=== PATIENT | female | born 1945 | race Caucasian/White ===

== ENCOUNTER 2022-10-16 08:20 | Outpatient (CLI) | payer MEDICARE, SELFPAY ==
--- NOTE | 2022-10-16 08:24 | ART_ITS ---
Reason For Study: PVD Procedure A bilateral lower extremity continuous wave Doppler with analog waveform analysis and ankle brachial indexes. Left Segmental Pressures Left brachial= 129mmHg. Left posterior tibial artery = 153mmHg. Left dorsalis pedis artery = 138mmHg. Left digit = 91 mmHg. The left dorsalis pedis waveforms are triphasic. The left posterior tibial artery waveforms are triphasic. Right Segmental Pressures Right brachial= 129mmHg. Right posterior tibial artery = 151mmHg. Right dorsalis pedis artery = 131mmHg. Right digit = 97 mmHg. The right dorsalis pedis waveforms are triphasic. The right posterior tibial artery waveforms are triphasic. Indices The right ankle brachial index by the dorsalis pedis is 1.02. The right ankle brachial index by the posterior tibial artery is 1.17. The right digital-brachial index is 0.75. The left ankle brachial index by the dorsalis pedis is 1.07. The left ankle brachial index by the posterior tibial artery is 1.19. The left digital-brachial index is 0.71. VL/Ankle Brachial Index Interpretation Summary Triphasic Doppler waveforms are noted at ankle level bilaterally. Pulse-volume recordings appear satisfactory at ankle and digital levels bilaterally. Resting ankle-brachial in dices are normal bilaterally. Digital-brachial indices are normal bilaterally. There is no evidence of significant arterial occlusive disease in the lower ext remities bilaterally. Ordering Physician: Caterina Nayak Referring Physician: CATERINA NAYAK MD Performed By: Estephanie Fajardo RVT
== END 2022-10-16 23:59 | disposition home or self-care (01) ==
LOC: CVS 08:22
PROVIDERS: PCP Family Medicine; Visit Provider Family Medicine
DX: I73.9 Peripheral vascular disease, unspecified (principal)
CPT/HCPCS: 93922

== ENCOUNTER → 2023-03-24 | Outpatient (CLI) | payer MEDICARE, SELFPAY ==
--- NOTE | 2023-03-24 12:15 | US_ITS ---
INDICATION: MULTINODULAR GOITER EXAMINATION: Ultrasound US Thyroid (eg thyroid, parathyroid, parotid) TECHNIQUE: Nunes scale and color doppler imaging was performed of the thyroid gland. COMPARISON: July 25, 2015 thyroid ultrasound. FINDINGS: RIGHT THYROID LOBE: 3.5 x 1.5 x 1.2 cm. Heterogeneous echotexture throughout. [ 6 x 4 x 3 mm anechoic cyst upper right thyroid lobe. 3 x 2 x 2 mm, solid, hyperechoic nodule, wider than tall with no echogenic foci and ill-defined margins; TI-RADS category 3, mildly suspicious nodule. 7 x 6 x 4 mm solid, hypoechoic nodule, wider than tall with smooth margins; TI-RADS Category 4, moderately suspicious nodule. Given size less than 1 cm, no follow-up recommended based on ACR guidelines. LEFT THYROID LOBE: 3.9 x 1.3 x 2.0 cm. Heterogeneous echotexture throughout. [ 1.5 x 1.0 x 0.9 cm solid, isoechoic nodule, wider than tall with smooth margins and no echogenic foci; TI-RADS Category 3, mildly suspicious nodule. Given size up to 1.5 cm, follow-up imaging at 1, 2, 3 and 5 years is recommended. 1.3 x 1.2 x 1.0 cm solid, heterogeneous hypoechoic echotexture, wider than tall ill-defined margins and punctate echogenic foci corresponds to a TI-RADS Category 5, highly suspicious nodule for which FNA is recommended. This nodule does not appear significantly changed in appearance compared to prior exam from 2015. Correlate with prior FNA if available. 7 x 5 x 4 mm solid, hypoechoic, wider than tall, ill-defined nodule with apparent peripheral macrocalcification corresponds to a BI-RADS Category 4 moderately suspicious nodule. Given size less than 1 cm, no follow-up is recommended. ISTHMUS: 3 mm. No thyroid nodules are present. US/Thyroid IMPRESSION: Normal size thyroid gland. Multiple nodules with management guidelines as above. Electronically Signed: Gabriel Graff DO at 21:50 EDT ,
== END | disposition home or self-care (01) ==
PROVIDERS: PCP Family Medicine; Referring Provider Family Medicine; Visit Provider Family Medicine
DX: E04.2 Nontoxic multinodular goiter (principal)
CPT/HCPCS: 76536

== ENCOUNTER → 2023-04-23 | Outpatient (CLI) | payer MEDICARE, SELFPAY ==
--- NOTE | 2023-04-23 | FLU_PTH ---
PATIENT: PHILIP FARR LOC: [facility] U#:[id number] AGE/SX: 77/F ROOM: RE04/23/[address]: Dr. Gabriel Koroma MD : 1945 BED: DIS: 04/23/2023 SPEC #: [id number] RECD: 04/23/23 12:10 STATUS: DARIEL EMRE #: [id number] SAYDA: 04/23/23 00:[address]: Gabriel Koroma DEPT: CYTOLOGY RECD BY: Francesco Brown ENTERED: 04/23/23 12:10 SP TYPE: Fluid OTHR DR: Dr. Karuna Ibarra MD Tissues: A - Thyroid gland, NOS B - Thyroid gland, NOS Procedures: Special Stain Group II Surgery Specimen Level IV Cytospin Fluid HEADER OPERATION: Fine needle aspiration left thyroid PRE-OP DIAGNOSIS: Thyroid nodules TISSUE SUBMITTED: A - Left mid pole thyroid nodule fluid, B - Left mid pole thyroid nodule x4 slides DIAGNOSIS CYTOLOGY A. Left mid pole thyroid nodule fluid, fine needle aspiration (cytospin and cell block): Consistent with benign follicular/colloid nodule ([place] Category II). Adequate for evaluation. See comment. B. Left mid pole thyroid nodule, fine needle aspiration (smears): Consistent with benign follicular/colloid nodule ([place] Category II). Adequate for evaluation. See comment. SJ:mikaela 04/24/2023 COMMENT Correlation with clinical, radiologic findings and appropriate follow up are necessary. The [place] System for thyroid diagnostic categorization was used in the evaluation of this case. CYTOLOGY STUDY Slides are reviewed. CYTOLOGY GROSS A - Received is 40 ml of red cloudy fluid labeled with the patient's name and and designated per the requisition as left mid pole thyroid. Submitted for cytology preparation including cell block. B - Received are four smears labeled with the patient's name and designated per the requisition as left mid pole thyroid nodule. Submitted for staining. / mikaela 04/23/2023 TC:5 CPT: 16644 x2, 82574
== END | disposition home or self-care (01) ==
LOC: LABSPEC 11:35
PROVIDERS: PCP Family Medicine; Referring Provider Surgery; Visit Provider Surgery
DX: E04.1 Nontoxic single thyroid nodule (principal)
CPT/HCPCS: 88108; 88305; 88313

== ENCOUNTER → 2024-03-30 | Outpatient (CLI) | payer MEDICARE, SELFPAY ==
--- NOTE | 2024-03-30 12:50 | BD_ITS ---
STUDY: DUAL ENERGY X-RAY ABSORPTIOMETRY / DXA REASON FOR EXAM: Female, 78 years old. Z780 TECHNIQUE: Bone Mineral Density (BMD) measurements of lumbar spine and bilateral hips were obtained. COMPARISON: None. FINDINGS: Lumbar Spine (L1-L4): g/cm2 (1.125) / T-score (0.7) / Z-score (3.4) Findings are suggestive of normal bone density with a low fracture risk. Left Femur Total: g/cm2 (0.900) / T-score (-0.3) / Z-score (1.7) Left Femoral Neck: g/cm2 (0.769) / T-score (-0.7) / Z-score (0.6) Right Femur Total: g/cm2 (0.785) / T-score (-1.3) / Z-score (0.8) Right Femoral Neck: g/cm2 (0.684) / T-score (-1.5) / Z-score (0.8) BD/Dexa Bone Density Study IMPRESSION: The patient is considered osteopenic as outlined below according to World Aj Organization (WHO) criteria with a low fracture risk. Reference Information: The T-score is the number of standard deviations above or below the standard which is normal for young adults at their peak bone mineral density. The World Health Organization (WHO) interprets the T-scores as follows: Above -1 Normal bone density Between -1 and -2.5 Osteopenia Equal to / or below -2.5 Osteoporosis As a practical clinical guideline, osteopenia may be graded as follows: Mild -1 through -1.5 Moderate -1.6 through -2.0 Severe -2.1 through -2.4 The Z-score is the number of standard deviations above or below age-matched controls. A Z-score of less than -1.5 would be considered abnormal. References: 1. NIH Osteoporosis and Related Bone Diseases www osteo.org 2. International Society for Clinical Densitometry www iscd.org 3. National Osteoporosis Foundation www nof.org Electronically Signed: Shemar Maradiaga MD at 15:44 EDT ,
== END | disposition home or self-care (01) ==
LOC: OPBD 12:34
PROVIDERS: PCP Family Medicine; Referring Provider Family Medicine; Visit Provider Family Medicine
DX: Z78.0 Asymptomatic menopausal state (principal)
CPT/HCPCS: 77080

== ENCOUNTER 2024-05-13 14:00 | Outpatient (RCR) | payer MEDICARE, SELFPAY ==
[2024-05-05 10:11] VITALS: BP 120/55; PULSE 85; RESP 20; TEMP 36.3; BMI 26.1
--- NOTE | 2024-05-05 11:03 | PCM.WC.HP ---
History of Present Illness Date of Service: 05/05/24 Chief Complaint: Follow-up bilateral lower leg edema and weeping legs History of Wound: 78-year-old white female with history of peripheral vascular disease she is also diabetic her A1c is run around 7.6 she is on Trulicity and glimepiride for her diabetes. She has issues with her lower legs weeping all the time and the edema. She has no history of A-fib or congestive heart failure. [facility] Medical History Diabetes Family history of multiple pregnancies Home Medications ?Medication ?Instructions ?Recorded ?Last Taken ?Type atorvastatin 20 mg tablet 20 mg PO QHS 08/08/14 Unknown History lactobacillus combination no.4 3 1 ea PO DAILY 08/08/14 Unknown History billion cell capsule (Probiotic) levothyroxine 75 mcg tablet 75 mcg PO DAILY 08/08/14 Unknown History lisinopril 20 mg tablet 20 mg PO DAILY 08/08/14 Unknown History multivitamin with folic acid 400 1 tab PO DAILY 08/08/14 Unknown History mcg tablet (Thera) FREESTYLE LITE TEST subcut 10/23/22 Unknown History bisoprolol 10 1 tab PO DAILY 10/23/22 Unknown History mg-hydrochlorothiazide 6.25 mg tablet blood-glucose meter (OneTouch #1 ea 10/23/22 Unknown Rx Ultra2 Meter) doxazosin 8 mg tablet (Cardura) 2 mg PO DAILY 10/23/22 Unknown History ergocalciferol (vitamin D2) 1,250 1,250 mcg PO .monthly 10/23/22 Unknown History mcg (50,000 unit) capsule aspirin 325 mg tablet 81 mg PO DAILY@0800 03/19/23 Unknown History vitamin A palmitate 4,500 mcg 4,500 mcg PO QWEEK 04/23/23 Unknown History (15,000 unit) tablet blood sugar diagnostic (OneTouch #100 ea 01/05/24 Unknown Rx Ultra Test strips) dulaglutide 3 mg/0.5 mL 3 mg (0.5 mL) subcut QWEEK #2 mL 01/05/24 Unknown Rx subcutaneous pen injector (Trulicity) glimepiride 4 mg tablet 2 mg (1/2 x 4 mg) PO DAILY #45 tabs 03/19/24 05/05/24 Rx metformin 1,000 mg tablet 1,000 mg PO BID #180 tabs 03/19/24 Unknown Rx metformin 500 mg/5 mL oral solution 500 mg PO DAILY 05/05/24 Unknown History Allergy/AdvReac Type Severity Reaction Status Date / Time No Known Allergies Allergy Verified 05/05/24 10:40 Family History Other Anxiety Depression Diabetes High cholesterol Hypertension Thyroid disorder Surgical History History of partial hysterectomy Social History Smoking Status: Former smoker alcohol intake: never substance use type: does not use what type of physical activity do you participate in: none ROS Constitutional Constitutional: Reports systems reviewed and no addt'l complaints, except as documented Eyes Eyes: Reports systems reviewed and no addt'l complaints, except as documented ENT HEENT: Reports systems reviewed and no addt'l complaints, except as documented Cardiovascular Cardiovascular: Reports systems reviewed and no addt'l complaints, except as documented Respiratory/Chest Respiratory/Chest: Reports systems reviewed and no addt'l complaints, except as documented Gastrointestinal Gastrointestinal: Reports systems reviewed and no addt'l complaints, except as documented Genitourinary Genitourinary: Reports systems reviewed and no addt'l complaints, except as documented Musculoskeletal Musculoskeletal: Reports systems reviewed and no addt'l complaints, except as documented Integumentary Integumentary: Reports wounds and other Details: Erythematous with weeping legs on lower extremities well-demarcated like a sock. This is on both legs circumferential Neurologic Neurologic: Reports systems reviewed and no addt'l complaints, except as documented Psychiatric Psychiatric: Reports systems reviewed and no addt'l complaints, except as documented Endocrine Endocrinology: Reports systems reviewed and no addt'l complaints, except as documented Hematologic/Lymphatic Hematologic/Lymphatic: Reports systems reviewed and no addt'l complaints, except as documented Allergic/Immunologic Allergic/Immunologic: Reports systems reviewed and no addt'l complaints, except as documented Vital Signs Vital Signs Vital Signs: 05/05/24 10:11 Temperature 97.3 F L Temperature Source Temporal Pulse Rate 85 Respiratory Rate 20 H Blood Pressure 120/55 L Blood Pressure Mean 76 Blood Pressure Source Monitor Weight Weight: 156 lb 14.738 oz Body Mass Index (BMI) 26.1 Physical Exam Const oriented x3 General Appearance: cooperative Exam Limitations: no limitations HEENT normocephalic Eyes PERRL Neck full ROM General: normal visual inspection Resp normal respiratory effort Effort and Inspection: able to speak in complete sentences Auscultation: clear to auscultation bilaterally Cardio regular rate and regular rhythm Palpation: normal PMI Rate: regular rate Rhythm: regular rhythm GI Palpation: soft and no hepatosplenomegaly Back/Spine Cervical Spine: cervical ROM normal Thoracic Spine / Upper Back: normal to inspection Lumbar Spine / Lower Back: normal to inspection Extremity General Extremity: normal exam except as noted, edema, pulses abnormal and other findings Other Details: Erythema at base with weeping legs Skin Rashes: rashes noted Wound Narrative: Bilateral lower legs well-demarcated like a sock with weeping yellow drainage and erythematous base Neuro oriented x3 Psych Appearance: grossly normal Speech: normal speech Thought Content: normal thought content Judgement: judgement good Debridement Note Debridement Note No debridement was completed: No debridement was completed today Post-Debridement Measurements and Additional Note: Post-Debridement Measurements/Treatment - Nurse 1 - General Ulcer Assessment Start: 05/05/24 10:11 Freq: Status: Active Protocol: ALICIA Activity Type Activity Date Activity User E-sign Co-sign Detail Recorded Client Recorded Date Recorded By Document 05/05/24 10:11 DL [email or web address] 05/05/24 10:36 DL 05/05/24 10:11 - Today's Visit Information Type of service Initial Visit Arrival Mode Ambulatory Transfer Assistance None Patient Identification Verified (Name & Yes ) Patient Requires Transmission-Based No Precautions Finger Stick Blood Sugar(mg/dl) (if not checked indicated): Height and Weight Height 5 ft 5 in Weight 156 lb 14.738 oz Weight in Pounds 156.9 lbs Weight Measurement Method Estimated by Patient Body Mass Index (BMI) 26.1 BMI Classification Overweight BSA - Scooter 1.78 Vital Signs Temperature (97.8 F-99.1 F) 97.3 F L Temperature Source Temporal Pulse Rate (60-100) 85 Pulse Location Monitor Respiratory Rate (12-18) 20 H Respiratory rate source Observation Blood Pressure (90/60-120/80) 120/55 L Blood Pressure Mean 76 Source Monitor History Since Last Visit- (Skip if this is Patient's initial visit) Left Footwear Regular Shoe Right Footwear Regular Shoe Pain Scale: 0-10 Numeric Is Patient Pain Free? Yes Lower Extremity Assessment/ Foot Assessment/ Toe Nail Assessment Left -Posterior Tibial Palpable No -Dorsalis Pedis Palpable Yes -Extremity Color Hyperpigmented, Hemosiderin -Hair Growth on Legs No -Hair Growth on Toes No -Temperature of Extremity Warm -Capillary Refill Less than 3 Seconds -Dependent Rubor Yes -Blanched when Elevated No -Lipodermatosclerosis No -Other Deformity No -Prior Foot Ulcer No -Charcot Joint No -Prior Amputation No -Thick Yes -Discolored Yes -Deformed No -Improper Length & Hygeine No Right -Posterior Tibial Palpable No -Dorsalis Pedis Palpable Yes -Extremity Color Hyperpigmented, Hemosiderin -Hair Growth on Legs No -Hair Growth on Toes No -Temperature of Extremity Warm -Capillary Refill Less than 3 Seconds -Dependent Rubor Yes -Blanched when Elevated No -Lipodermatosclerosis No -Other Deformity No -Prior Foot Ulcer No -Charcot Joint No -Prior Amputation No -Thick Yes -Discolored Yes -Deformed Yes -Improper Length & Hygeine No Neuropathy Assessment Feet - Top Side and Bottom <Entered> (a) Communication Assessment Preferred language Micronesian Able to Read Yes Able to Write No Communication Tools None Right Hearing Abillity Normal Left Hearing Abillity Normal Visual Assistive Devices Glasses Teaching Assessment Preferences Verbal,Written, Demonstration Barriers to Learning None Readiness To Learn Good Willingness to Engage in Self Management Med Activies Readiness to Engage in Self Management Med Activities Anxiety Level Calm Cooperation Cooperative Perception Coherent Interest in Health Problem Asks Questions Education Importance Acknowledges Need Does Patient Smoke tobacco or other No substances Smoking Status Former smoker Is Patient Diabetic Yes Functional Assessment Recent Decline in Ability to Perform Denies Any Declines Culture/Yazidism/Molding And Trim Installer Cultural/Yazidism Needs that may affect No Treatment Plan Would you allow our hospital hand spring repairer to No meet you for the purpose of spiritual/ emotional support? Molding And Trim Installer to contact place of yazidi No Teaching: Wound Center Dressing Your Wound -Person Taught Patient *Welcome to the Wound Center -Person Taught Patient (a) 1 - _ WC - Nurse 1 - General Ulcer Measurement Start: 05/05/24 10:11 Freq: Status: Active Protocol: Activity Type Activity Date Activity User E-sign Co-sign Detail Recorded Client Recorded Date Recorded By Document 05/05/24 10:11 DL [email or web address] 05/05/24 10:36 DL 05/05/24 10:11 Wound Center Nurse 1 #2 LLE Cluster -Current Size (cm) - Length 22 -Current Size (cm) - Width 26 -Current Size (cm) - Depth 0.1 -Total Square Cm 572 -Photo Taken Yes -Exudate Amt Large -Exudate Type Serosanguineous -Wound Margin Distinct, Outline Attached -Granulation Amt Medium (34-66%) -Granulation Quality Red -Necrosis Amt Medium (34-66%) -Necrotic Tissue Type Adherent Slough -Structure Exposed N/A -Texture (Mya-wound Skin Appearance) Excoriation, Scarring -Moisture (Mya-wound Skin Appearance) Weeping -Color (Mya-wound Skin Appearance) Erythema, Hemosiderin Staining -Temperature (Mya-wound Skin No Abnormality Appearance) (Pt Warm) -Ulcer Cleansing Soap and Water -Foul Odor after Cleansing No -Anesthetic Used 4% Lidocaine Solution #1 RLE Cluster -Current Size (cm) - Length 19 -Current Size (cm) - Width 27.5 -Current Size (cm) - Depth 0.1 -Total Square Cm 522.5 -Photo Taken Yes -Exudate Amt Large -Exudate Type Serosanguineous -Wound Margin Distinct, Outline Attached -Granulation Amt Medium (34-66%) -Granulation Quality Red -Necrosis Amt Medium (34-66%) -Necrotic Tissue Type Adherent Slough -Structure Exposed N/A -Texture (Mya-wound Skin Appearance) Excoriation, Scarring -Moisture (Mya-wound Skin Appearance) Weeping -Color (Mya-wound Skin Appearance) Erythema, Hemosiderin Staining -Temperature (Mya-wound Skin No Abnormality Appearance) (Pt Warm) -Tenderness on Palpation (Mya-wound No Skin Appearance) -Ulcer Cleansing Soap and Water -Foul Odor after Cleansing No -Anesthetic Used 4% Lidocaine Solution Right Calf (cm) 39.5 Right Ankle (cm) 23.7 Left Calf (cm) 42 Left Ankle (cm) 24.7 WC - Nurse 2 - General Ulcer CM Notes Start: 05/05/24 10:11 Freq: Status: Active Protocol: Activity Type Activity Date Activity User E-sign Co-sign Detail Recorded Client Recorded Date Recorded By Document 05/05/24 10:52 [facility] 1606-10-26 05/05/24 10:59 [facility] 05/05/24 10:52 Wound Center Nurse 2 #2 LLE Cluster -Post Debridement (cm) - Length 22 -Post Debridement (cm) - Width 26 -Post Debridement (cm) - Depth 0.1 -Total Square (Post) (cm) 572 -Area of Debridement (cm) - Length 22 -Area of Debridement (cm) - Width 26 -Total Square (Area) (cm) 572 -Tunneling No -Undermining/Tunneling No -Circular Undermining No -Wound/Ulcer Outcome Not Healed -Ulcer Cleansing Rinsed/ Irrigated with Saline -Foul Odor after Cleansing No Pain Scale: 0-10 Numeric Is Patient Pain Free? Yes Assessment/Plan Assessment/Plan (1) Peripheral vascular disease: CODE(S): I73.9 - Peripheral vascular disease, unspecified PLAN: Patient be scheduled for a Doppler study of arterial arteries and veins wound center protocol Wash legs with antibacterial soap like Dial. Pat dry apply Xeroform dressing to wound bases and cover with Zari and then double layer Tubigrip to bilateral lower legs daily dressings Follow-up in 1 week (2) Edema of both lower legs: CODE(S): R60.0 - Localized edema
--- NOTE | 2024-05-10 09:01 | WC ---
PHOTO 05/05/2024 LEFT LOWER EXT. CLUSTER
--- NOTE | 2024-05-10 09:03 | WC ---
PHOTO 05/05/2024 RIGHT LOWER EXT CLUSTER
[2024-05-12 10:15] VITALS: BP 130/68; PULSE 80; RESP 18; TEMP 36.6; BMI 26.1
--- NOTE | 2024-05-12 12:47 | PCM.WC.PN ---
History of Present Illness Date of Service: 05/12/24 Chief Complaint: Follow-up bilateral lower leg edema and weeping legs History of Wound: 78-year-old white female with history of peripheral vascular disease she is also diabetic her A1c is run around 7.6 she is on Trulicity and glimepiride for her diabetes. She has issues with her lower legs weeping all the time and the edema. She has no history of A-fib or congestive heart failure. Progress of Wound: Legs are already healed with the Xeroform from last week she has a couple of Rawl looking areas that we will continue using the Xeroform on but they are not open mostly for just protection. Patient is scheduled tomorrow for her Doppler flow studies. Subjective Subjective Patient is very happy with outcomes Objective Data Objective Data No sign of infection there is no seeping of any fluid on any of her legs healing nicely with the Xeroform dressing she has a couple of areas that appear to be a little bit raw we will continue with the Xeroform. Vital Signs: Vital Signs Temp Pulse Resp BP 98 F 80 18 130/68 H 05/12/24 10:15 05/12/24 10:15 05/12/24 10:15 05/12/24 10:15 Weight: 156 lb 14.738 oz Body Mass Index (BMI) 26.1 Lab / Micro Data Attestation: I reviewed the patient's lab results. Physical Exam Const oriented x3 General Appearance: cooperative Exam Limitations: no limitations HEENT normocephalic Eyes PERRL Neck full ROM General: normal visual inspection Resp normal respiratory effort Effort and Inspection: able to speak in complete sentences Auscultation: clear to auscultation bilaterally Cardio regular rate and regular rhythm Palpation: normal PMI Rate: regular rate Rhythm: regular rhythm GI Palpation: soft and no hepatosplenomegaly Back/Spine Cervical Spine: cervical ROM normal Thoracic Spine / Upper Back: normal to inspection Lumbar Spine / Lower Back: normal to inspection Extremity General Extremity: normal exam except as noted, edema, pulses abnormal and other findings Other Details: Erythema at base with weeping legs Skin Rashes: rashes noted Wound Narrative: Bilateral lower legs well-demarcated like a sock with weeping yellow drainage and erythematous base Neuro oriented x3 Psych Appearance: grossly normal Speech: normal speech Thought Content: normal thought content Judgement: judgement good Debridement Note Debridement Note No debridement was completed: No debridement was completed today Post-Debridement Measurements and Additional Note: Post-Debridement Measurements/Treatment WC - Nurse 1 - General Ulcer Assessment Start: 05/05/24 10:11 Freq: Status: Active Protocol: ALICIA Activity Type Activity Date Activity User E-sign Co-sign Detail Recorded Client Recorded Date Recorded By Document 05/05/24 10:11 DL [email or web address] 05/05/24 10:36 DL Document 05/12/24 10:15 RB wound 05/12/24 10:17 RB 05/05/24 05/12/24 10:11 10:15 - Today's Visit Information Type of service Initial Visit Follow-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 ) Arrival Mode Ambulatory Ambulatory Transfer Assistance None None Patient Identification Verified (Name & Yes Yes ) Patient Requires Transmission-Based No No Precautions Finger Stick Blood Sugar(mg/dl) (if not checked indicated): Height and Weight Height 5 ft 5 in Weight 156 lb 14.738 oz Weight in Pounds 156.9 lbs Weight Measurement Method Estimated by Patient Body Mass Index (BMI) 26.1 26.1 BMI Classification Overweight Overweight BSA - Scooter 1.78 Vital Signs Temperature (97.8 F-99.1 F) 97.3 F L 98 F Temperature Source Temporal Temporal Pulse Rate (60-100) 85 80 Pulse Location Monitor Monitor Respiratory Rate (12-18) 20 H 18 Respiratory rate source Observation Observation Blood Pressure (90/60-120/80) 120/55 L 130/68 H Blood Pressure Mean (mm Hg) 76 88 Source Monitor Monitor Position Semi-Fowlers Blood Pressure Location Left Arm History Since Last Visit- (Skip if this is Patient's initial visit) Have you changed medications since your No last visit? Any new allergies or adverse reactions No Had a fall/change in ADL's that may No increase risk of falls Signs or symptoms of abuse and/or No neglect since last visit Have you been in the hospital since your No last visit? Has dressing in place as prescribed Yes Has compression in place as prescribed Yes Has offloadiing in place as prescribed No Experienced any changes in pain level or No management Left Footwear Regular Shoe Right Footwear Regular Shoe Pain Scale: 0-10 Numeric Is Patient Pain Free? Yes Yes Lower Extremity Assessment/ Foot Assessment/ Toe Nail Assessment Left -Posterior Tibial Palpable No -Dorsalis Pedis Palpable Yes -Extremity Color Hyperpigmented, Hemosiderin -Hair Growth on Legs No -Hair Growth on Toes No -Temperature of Extremity Warm -Capillary Refill Less than 3 Seconds -Dependent Rubor Yes -Blanched when Elevated No -Lipodermatosclerosis No -Other Deformity No -Prior Foot Ulcer No -Charcot Joint No -Prior Amputation No -Thick Yes -Discolored Yes -Deformed No -Improper Length & Hygeine No Right -Posterior Tibial Palpable No -Dorsalis Pedis Palpable Yes -Extremity Color Hyperpigmented, Hemosiderin -Hair Growth on Legs No -Hair Growth on Toes No -Temperature of Extremity Warm -Capillary Refill Less than 3 Seconds -Dependent Rubor Yes -Blanched when Elevated No -Lipodermatosclerosis No -Other Deformity No -Prior Foot Ulcer No -Charcot Joint No -Prior Amputation No -Thick Yes -Discolored Yes -Deformed Yes -Improper Length & Hygeine No Neuropathy Assessment Feet - Top Side and Bottom <Entered> (a) Communication Assessment Preferred language German Able to Read Yes Able to Write No Communication Tools None Right Hearing Abillity Normal Left Hearing Abillity Normal Visual Assistive Devices Glasses Teaching Assessment Preferences Verbal,Written, Demonstration Barriers to Learning None Readiness To Learn Good Willingness to Engage in Self Management Med Activies Readiness to Engage in Self Management Med Activities Anxiety Level Calm Cooperation Cooperative Perception Coherent Interest in Health Problem Asks Questions Education Importance Acknowledges Need Does Patient Smoke tobacco or other No substances Smoking Status Former smoker Is Patient Diabetic Yes Functional Assessment Recent Decline in Ability to Perform Denies Any Declines 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 Resistance to contact place of catholic No Teaching: Wound Center Dressing Your Wound -Person Taught Patient *Welcome to the Wound Center -Person Taught Patient (a) 1 - _ ALEX - Nurse 1 - General Ulcer Measurement Start: 05/05/24 10:11 Freq: Status: Active Protocol: Activity Type Activity Date Activity User E-sign Co-sign Detail Recorded Client Recorded Date Recorded By Document 05/05/24 10:11 DL [email or web address] 05/05/24 10:36 DL Document 05/12/24 10:15 RB wound 05/12/24 10:17 RB 05/05/24 05/12/24 10:11 10:15 Wound Center Nurse 1 #2 LLE Cluster -Combined with other wound No -Current Size (cm) - Length 22 0.1 -Current Size (cm) - Width 26 0.1 -Current Size (cm) - Depth 0.1 0.1 -Total Square Cm 572 0.01 -Photo Taken Yes -Tunneling No -Undermining/Tunneling No -Circular Undermining No -Exudate Amt Large Medium -Exudate Type Serosanguineous Serosanguineous -Wound Margin Distinct, Distinct, Outline Outline Attached Attached -Granulation Amt Medium (34-66%) Medium (34-66%) -Granulation Quality [place] -Slough/Fibrin Yes -Necrosis Amt Medium (34-66%) Medium (34-66%) -Necrotic Tissue Type Adherent Slough Adherent Slough -Structure Exposed N/A N/A -Texture (Mya-wound Skin Appearance) Excoriation, Assessed, Scarring Excoriation -Moisture (Mya-wound Skin Appearance) Weeping Assessed -Color (Mya-wound Skin Appearance) Erythema, Assessed Hemosiderin Staining -Temperature (Mya-wound Skin No Abnormality No Abnormality Appearance) (Pt Warm) (Pt Warm) -Tenderness on Palpation (Mya-wound No Skin Appearance) -Ulcer Cleansing Soap and Water Wound Cleanser -Foul Odor after Cleansing No No -Anesthetic Used 4% Lidocaine 4% Lidocaine Solution Solution #1 RLE Cluster -Combined with other wound No -Current Size (cm) - Length 19 0.1 -Current Size (cm) - Width 27.5 0.1 -Current Size (cm) - Depth 0.1 0.1 -Total Square Cm 522.5 0.01 -Photo Taken Yes -Tunneling No -Undermining/Tunneling No -Circular Undermining No -Exudate Amt Large Medium -Exudate Type Serosanguineous Serosanguineous -Wound Margin Distinct, Distinct, Outline Outline Attached Attached -Granulation Amt Medium (34-66%) Medium (34-66%) -Granulation Quality [place] -Slough/Fibrin Yes -Necrosis Amt Medium (34-66%) Medium (34-66%) -Necrotic Tissue Type Adherent Slough Adherent Slough -Structure Exposed N/A N/A -Texture (Mya-wound Skin Appearance) Excoriation, Assessed, Scarring Excoriation -Moisture (Mya-wound Skin Appearance) Weeping Assessed -Color (Mya-wound Skin Appearance) Erythema, Assessed Hemosiderin Staining -Temperature (Mya-wound Skin No Abnormality No Abnormality Appearance) (Pt Warm) (Pt Warm) -Tenderness on Palpation (Mya-wound No No Skin Appearance) -Ulcer Cleansing Soap and Water Wound Cleanser -Foul Odor after Cleansing No No -Anesthetic Used 4% Lidocaine 4% Lidocaine Solution Solution Lower Limb Edema Present Yes Right Calf (cm) 39.5 36 Right Ankle (cm) 23.7 21.5 Left Calf (cm) 42 36.2 Left Ankle (cm) 24.7 21.5 WC - Nurse 2 - General Ulcer CM Notes Start: 05/05/24 10:11 Freq: Status: Active Protocol: Activity Type Activity Date Activity User E-sign Co-sign Detail Recorded Client Recorded Date Recorded By Document 05/05/24 10:52 [facility] [id number] 05/05/24 10:59 BMF Edit Result 05/05/24 10:52 BMF (1) [id number] 05/05/24 11:52 BMF Document 05/12/24 12:17 BMF [id number] 05/12/24 12:18 BMF (1) #2 LLE Cluster - Ulcer Cleansing Rinsed/Irrigated => with Saline => - Foul Odor after Cleansing No => - Bleeding Controlled with => NA #1 RLE Cluster - Post Debridement (cm) - Length => 19 - Post Debridement (cm) - Width => 27.5 - Post Debridement (cm) - Depth => 0.1 - Total Square (Post) (cm) => 522.5 - Area of Debridement (cm) - Length => 19 - Area of Debridement (cm) - Width => 27.5 - Total Square (Area) (cm) => 522.5 - Wound/Ulcer Outcome => Not Healed - Bleeding Controlled with => NA 05/05/24 05/12/24 10:52 12:17 Wound Center Nurse 2 #2 LLE Cluster -Post Debridement (cm) - Length 22 0.1 -Post Debridement (cm) - Width 26 0.1 -Post Debridement (cm) - Depth 0.1 0.1 -Total Square (Post) (cm) 572 0.01 -Area of Debridement (cm) - Length 22 0.1 -Area of Debridement (cm) - Width 26 0.1 -Total Square (Area) (cm) 572 0.01 -Tunneling No -Undermining/Tunneling No -Circular Undermining No -Wound/Ulcer Outcome Not Healed Not Healed -Bleeding Controlled with NA NA #1 RLE Cluster -Post Debridement (cm) - Length 19 0.1 -Post Debridement (cm) - Width 27.5 0.1 -Post Debridement (cm) - Depth 0.1 0.1 -Total Square (Post) (cm) 522.5 0.01 -Area of Debridement (cm) - Length 19 0.1 -Area of Debridement (cm) - Width 27.5 0.1 -Total Square (Area) (cm) 522.5 0.01 -Wound/Ulcer Outcome Not Healed Not Healed -Bleeding Controlled with NA NA Pain Scale: 0-10 Numeric Is Patient Pain Free? Yes Yes WC - Nurse 3 - General Ulcer D/C NN Start: 05/05/24 10:11 Freq: Status: Active Protocol: Activity Type Activity Date Activity User E-sign Co-sign Detail Recorded Client Recorded Date Recorded By Document 05/05/24 11:52 DL [id number] 05/05/24 11:55 DL Document 05/12/24 11:26 DL [email or web address] 05/12/24 11:28 DL 05/05/24 05/12/24 11:52 11:26 Wound Care Center Nurse 3 #2 LLE Cluster -Ulcer Cleansing Soap and Water Soap and Water -Foul Odor after Cleansing No No -Primary Dressing Applied NonAdherent Contact Layer -Other Dressing ABD xeroform -Primary Dressing Covered/Secured with Dry Gauze & Dry Gauze & Roll Gauze, Roll Gauze, Secured with Secured with Tape Tape -Other Covering tubigrip #1 RLE Cluster -Ulcer Cleansing Soap and Water Soap and Water -Foul Odor after Cleansing No No -Primary Dressing Applied NonAdherent Contact Layer -Other Dressing ABD xeroform -Primary Dressing Covered/Secured with Dry Gauze & Dry Gauze & Roll Gauze Roll Gauze, Secured with Tape -Other Covering tubigrip bryn -Tubular Bandage Double Layer -Size of Tubigrip Used Size E -Size E ($) 2 Treatment Response Procedure Procedure Tolerated Well Tolerated Well Pain Scale: 0-10 Numeric Is Patient Pain Free? Yes Yes WC - Visit Discharge Discharge Condition Stable Stable Ambulatory Status Ambulatory Ambulatory Transportation Private Auto Private Auto Assessment/Plan Assessment/Plan (1) Peripheral vascular disease: CODE(S): I73.9 - Peripheral vascular disease, unspecified PLAN: Keep scheduled appointment for a Doppler study of arterial arteries and veins wound center protocol Wash legs with antibacterial soap like Dial. Pat dry apply Xeroform dressing to wound bases and cover with Zari and then double layer Tubigrip to bilateral lower legs daily dressings Follow-up in 1 week (2) Edema of both lower legs: CODE(S): R60.0 - Localized edema
--- NOTE | 2024-05-13 13:48 | ART_ITS ---
Reason For Study: PVD Procedure A bilateral lower extremity continuous wave Doppler with analog waveform analysis,segmental pressures,and ankle brachial indexes without exercise. Left Segmental Pressures Left brachial= 124mmHg. Left posterior tibial artery = 143mmHg. Left dorsalis pedis artery = 135mmHg. Left digit = 127 mmHg. The left dorsalis pedis waveforms are triphasic. The left posterior tibial artery waveforms are triphasic. Right Segmental Pressures Right brachial= 117mmHg. Right posterior tibial artery = 157mmHg. Right dorsalis pedis artery = 149mmHg. Right digit = 114 mmHg. The right dorsalis pedis waveforms are triphasic. The right posterior tibial artery waveforms are triphasic. Indices The right ankle brachial index by the dorsalis pedis is 1.2. The right ankle brachial index by the posterior tibial artery is 1.27. The right digital-brachial index is .92. The left ankle brachial index by the posterior tibial artery is 1.15. The left ankle brachial index by the dorsalis pedis is 1.09. The left digital-brachial index is 1.02. VL/Lower Ext Art Exam w/o Exercis Interpretation Summary Triphasic Doppler waveforms are noted at ankle level bilaterally. Pulse-volume recordings appear satisfactory at all levels bilaterally. Resting ankle-brachial indices are norm al bilaterally. Digital-brachial indices are normal bilaterally. There is no evidence of significant arterial occlusive disease in the lower ext remities bilaterally. Ordering Physician: Ashley Abreu Referring Physician: ASHLEY ABREU INVENTORY CONTROL ASSISTANT-C Performed By: Chi Villalba RVT
--- NOTE | 2024-05-13 13:48 | VDLE_ITS ---
Reason For Study: edema RIGHT LEFT CFV is compressible, spontaneous, phasic, CFV is compressible, spontaneous, phasic, competent and demonstrates normal competent, and demonstrates normal augmentation. augmentation. FV is compressible, spontaneous, phasic, FV is compressible, spontaneous, phasic, competent and demonstrates normal competent and demonstrates normal augmentation. augmentation. POP V is compressible, spontaneous, phasic, POP V is compressible, spontaneous, phasic, competent and demonstrates normal competent and demonstrates normal augmentation. augmentation. T/P Trunk is compressible. T/P Trunk is compressible. PTV is compressible. PTV is compressible. RT PerV is compressible. LT PerV is compressible. SFJ is competent and measures .81 cm. SFJ is competent and measures .83 cm. GSV proximal thigh measures .62 x .62 cm. GSV proximal thigh measures .65 x .62 cm. GSV at knee measures .5 x .51 cm. GSV at knee measures .39 x .39 cm. GSV INCOMPETENT throughout for greater than GSV INCOMPETENT throughout for greater than 0.5 seconds. 0.5 seconds. SSV proximal calf is INCOMPETENT for greater SSV proximal calf is INCOMPETENT for greater than 0.5 seconds and measures .4 x .45 cm. than 0.5 seconds and measures .22 x .26 cm. Procedure ASV distal thigh is INCOMPETENT for greater This is a venous duplex using B-mode, color than 0.5 seconds and measures .47 x .46 cm. flow and spectral Doppler. Exam performed in department. The exam was diagnostic. VL/Venous Duplex US - Anthony Extrem Interpretation Summary Deep veins of the lower extremities are bilaterally patent and compressible seg mentally. There is no evidence of deep vein thrombosis on either side. Valvular competence appears in tact within the proximal deep venous systems bilaterally. The great saphenous veins appear bila terally patent and compressible segmentally. Sapheno-femoral junctions are bilaterally competent . Segmental valvular incompetence is noted within the great saphenous veins bilaterally. Small saphe nous veins are patent and incompetent bilaterally. The accessory saphenous vein in the left distal th igh is incompetent. Ordering Physician: Marcella Gil Referring Physician: Karuna Ibarra Performed By: Chi Villalba RVT
== END 2024-05-16 23:59 | disposition home or self-care (01) ==
LOC: WC 14:00
PROVIDERS: PCP Family Medicine; Referring Provider Family Medicine; Visit Provider Nurse Practitioner
DX: E11.51 Type 2 diabetes mellitus with diabetic peripheral angiopathy without gangrene (principal); R60.0 Localized edema; Z79.82 Long term (current) use of aspirin; Z79.84 Long term (current) use of oral hypoglycemic drugs; Z79.85 Long-term (current) use of injectable non-insulin antidiabetic drugs; Z79.890 Hormone replacement therapy; Z79.899 Other long term (current) drug therapy; Z87.891 Personal history of nicotine dependence
CPT/HCPCS: 93923; 93970; 99213; 99214; G0463

== ENCOUNTER 2024-05-19 10:01 | Outpatient (RCR) | payer MEDICARE, SELFPAY ==
[2024-05-19 00:04] VITALS: BP 130/68; PULSE 80; RESP 18; TEMP 36.6; BMI 26.1
[2024-05-19 10:19] VITALS: BP 126/66; PULSE 75; RESP 18; TEMP 36.1; BMI 26.1
--- NOTE | 2024-05-19 10:43 | PCM.WC.PN ---
History of Present Illness Date of Service: 05/19/24 Chief Complaint: Follow-up bilateral lower leg edema and weeping legs History of Wound: 78-year-old white female with history of peripheral vascular disease she is also diabetic her A1c is run around 7.6 she is on Trulicity and glimepiride for her diabetes. She has issues with her lower legs weeping all the time and the edema. She has no history of A-fib or congestive heart failure. Progress of Wound: Venous leg studies came back positive for GSF blockages in her connectors. Patient is going to be referred to Dr. Becker her wounds on her legs are completely healed. Patient will be discharged from the wound center Subjective Subjective Patient very pleased with outcomes and will follow-up with Dr. Becker after we get the referral and Objective Data Objective Data Wounds healed on legs patient be discharged from the wound center a referral was sent to Dr. Becker for her venous problems She can follow-up as needed Vital Signs: Vital Signs Temp Pulse Resp BP 97 F L 75 18 126/66 H 05/19/24 10:19 05/19/24 10:19 05/19/24 10:19 05/19/24 10:19 Weight: 156 lb 14.738 oz Body Mass Index (BMI) 26.1 Lab / Micro Data Attestation: I reviewed the patient's lab results. Physical Exam Const oriented x3 General Appearance: cooperative Exam Limitations: no limitations HEENT normocephalic Eyes PERRL Neck full ROM General: normal visual inspection Resp normal respiratory effort Effort and Inspection: able to speak in complete sentences Auscultation: clear to auscultation bilaterally Cardio regular rate and regular rhythm Palpation: normal PMI Rate: regular rate Rhythm: regular rhythm GI Palpation: soft and no hepatosplenomegaly Back/Spine Cervical Spine: cervical ROM normal Thoracic Spine / Upper Back: normal to inspection Lumbar Spine / Lower Back: normal to inspection Extremity General Extremity: normal exam except as noted, edema, pulses abnormal and other findings Other Details: Erythema at base with weeping legs Skin Rashes: rashes noted Wound Narrative: Bilateral lower legs well-demarcated like a sock with weeping yellow drainage and erythematous base Neuro oriented x3 Psych Appearance: grossly normal Speech: normal speech Thought Content: normal thought content Judgement: judgement good Debridement Note Debridement Note No debridement was completed: No debridement was completed today Post-Debridement Measurements and Additional Note: Post-Debridement Measurements/Treatment ALEX - Nurse 1 - General Ulcer Assessment Start: 05/19/24 10:19 Freq: Status: Active Protocol: ALICIA Activity Type Activity Date Activity User E-sign Co-sign Detail Recorded Client Recorded Date Recorded By Document 05/19/24 10:19 RB wound 05/19/24 10:24 RB 05/19/24 10:19 WC - Today's Visit Information Type of service Follow-up Visit (Physician/COMPUTATIONAL SCIENTIST ) Arrival Mode Ambulatory Transfer Assistance None Patient Identification Verified (Name & Yes ) Patient Requires Transmission-Based No Precautions Height and Weight Body Mass Index (BMI) 26.1 BMI Classification Overweight Vital Signs Temperature (97.8 F-99.1 F) 97 F L Temperature Source Temporal Pulse Rate (60-100) 75 Pulse Location Monitor Respiratory Rate (12-18) 18 Respiratory rate source Observation Blood Pressure (90/60-120/80) 126/66 H Blood Pressure Mean (mm Hg) 86 Source Monitor Position Semi-Fowlers Blood Pressure Location Left Arm History Since Last Visit- (Skip if this is Patient's initial visit) Have you changed medications since your No last visit? Any new allergies or adverse reactions No Had a fall/change in ADL's that may No increase risk of falls Signs or symptoms of abuse and/or No neglect since last visit Have you been in the hospital since your No last visit? Has dressing in place as prescribed Yes Has compression in place as prescribed Yes Has offloadiing in place as prescribed No Experienced any changes in pain level or No management Pain Scale: 0-10 Numeric Is Patient Pain Free? Yes - Nurse 1 - General Ulcer Measurement Start: 05/19/24 10:19 Freq: Status: Active Protocol: Activity Type Activity Date Activity User E-sign Co-sign Detail Recorded Client Recorded Date Recorded By Document 05/19/24 10:19 RB wound 05/19/24 10:24 RB 05/19/24 10:19 Wound Center Nurse 1 #2 LLE Cluster -Combined with other wound No -Current Size (cm) - Length 0.1 -Current Size (cm) - Width 0.1 -Current Size (cm) - Depth 0.1 -Total Square Cm 0.01 #1 RLE Cluster -Combined with other wound No -Current Size (cm) - Length 0.1 -Current Size (cm) - Width 0.1 -Current Size (cm) - Depth 0.1 -Total Square Cm 0.01 -Tunneling No -Undermining/Tunneling No -Circular Undermining No -Exudate Amt None Present -Wound Margin Distinct, Outline Attached -Granulation Amt Large (67-100%) -Granulation Quality Anderson -Necrosis Amt Small (1-33%) -Necrotic Tissue Type Adherent Slough -Structure Exposed N/A -Texture (Mya-wound Skin Appearance) Assessed, Excoriation -Moisture (Mya-wound Skin Appearance) Assessed -Color (Mya-wound Skin Appearance) Assessed -Temperature (Mya-wound Skin No Abnormality Appearance) (Pt Warm) -Tenderness on Palpation (Mya-wound No Skin Appearance) -Ulcer Cleansing Wound Cleanser -Foul Odor after Cleansing No Lower Limb Edema Present Yes Right Calf (cm) 36.2 Right Ankle (cm) 21.5 Left Calf (cm) 36 Left Ankle (cm) 21.5 WC - Nurse 2 - General Ulcer CM Notes Start: 05/19/24 10:19 Freq: Status: Active Protocol: Activity Type Activity Date Activity User E-sign Co-sign Detail Recorded Client Recorded Date Recorded By Document 05/19/24 10:30 [facility] [email or web address] 05/19/24 10:33 [facility] 05/19/24 10:30 Wound Center Nurse 2 #2 LLE Cluster -Post Debridement (cm) - Length 0 -Post Debridement (cm) - Width 0 -Post Debridement (cm) - Depth 0 -Total Square (Post) (cm) 0 -Area of Debridement (cm) - Length 0 -Area of Debridement (cm) - Width 0 -Total Square (Area) (cm) 0 -Wound/Ulcer Outcome Healed- Epithelialized #1 RLE Cluster -Post Debridement (cm) - Length 0 -Post Debridement (cm) - Width 0 -Post Debridement (cm) - Depth 0 -Total Square (Post) (cm) 0 -Area of Debridement (cm) - Length 0 -Area of Debridement (cm) - Width 0 -Total Square (Area) (cm) 0 -Wound/Ulcer Outcome Healed- Epithelialized Pain Scale: 0-10 Numeric Is Patient Pain Free? Yes WC - Nurse 3 - General Ulcer D/C NN Start: 05/19/24 10:19 Freq: Status: Active Protocol: Activity Type Activity Date Activity User E-sign Co-sign Detail Recorded Client Recorded Date Recorded By Document 05/19/24 10:37 [facility] [email or web address] 05/19/24 10:37 [facility] 05/19/24 10:37 Wound Care Center Nurse 3 bryn -Tubular Bandage Double Layer -Size of Tubigrip Used Size E -Size E ($) 2 Treatment Response Procedure Tolerated Well Pain Scale: 0-10 Numeric Is Patient Pain Free? Yes WC - Visit Discharge Discharge Condition Stable Ambulatory Status Ambulatory Transportation Private Auto Notes: will refer to vascular- dr becker Assessment/Plan Assessment/Plan (1) Peripheral vascular disease: CODE(S): I73.9 - Peripheral vascular disease, unspecified PLAN: Follow-up with Dr. Becker referral was sent over Tubigrip to bilateral lower legs till seen by Dr. Becker Discharge from the wound center and follow-up as needed (2) Edema of both lower legs: CODE(S): R60.0 - Localized edema
== END 2024-05-21 08:57 | disposition home or self-care (01) ==
LOC: WC 10:01
PROVIDERS: PCP Family Medicine; Referring Provider Family Medicine; Visit Provider Nurse Practitioner
DX: E11.51 Type 2 diabetes mellitus with diabetic peripheral angiopathy without gangrene (principal); R60.0 Localized edema; Z79.82 Long term (current) use of aspirin; Z79.84 Long term (current) use of oral hypoglycemic drugs; Z79.85 Long-term (current) use of injectable non-insulin antidiabetic drugs; Z79.890 Hormone replacement therapy; Z79.899 Other long term (current) drug therapy; Z87.891 Personal history of nicotine dependence
CPT/HCPCS: 99213; G0463

== ENCOUNTER → 2024-07-08 | Outpatient (CLI) | payer MEDICARE, SELFPAY ==
[2024-07-08 11:44] LABS: Vitamin D,25 Hydroxy 47.9 ng/mL
[2024-07-08 11:52] LABS: ALB/GLOB Ratio 0.9 RATIO (0.9-2.4); AST(SGOT) 15 U/L (15-37); Alanine Aminotransfer ALT/SGPT 21 U/L (13-56); Albumin, Serum 3.2 g/dL (3.2-5.0); Alkaline Phosphatase 99 U/L (45-117); Anion Gap 6 (5-15); BUN 13 mg/dL (7-18); BUN/Creat Ratio 21.6 RATIO (10-20); Calcium,Total 9.6 mg/dL (8.5-10.1); Chloride 106 mmol/L (98-107); Cholesterol 148 mg/dL (200); EST Glomerular Filtration Rate 102 mL/min (>60); Est Glom Filt Rate - Afr Amer 123 mL/min (>60); Globulin 3.6 g/dL (2.2-4.2); Glucose 179 mg/dL (74-106); High Density Lipoprotein 70 mg/dL; Potassium 4.4 mmol/L (3.5-5.1); Protein, Total 6.8 g/dL (6.4-8.2); Sodium Level 139 mmol/L (136-145); T4 Free Direct 1.14 ng/dL (0.76-1.46); Triglycerides 91 mg/dL; Very Low Density Lipoprotein 18 mg/dL (5-40)
[2024-07-08 13:02] LABS: Microalbumin,Random Urine 27.7 mg/L (NO RANGE EST.)
== END | disposition home or self-care (01) ==
LOC: LAB 10:47
PROVIDERS: PCP Family Medicine; Referring Provider Nurse Practitioner Family; Visit Provider Nurse Practitioner Family
DX: E11.65 Type 2 diabetes mellitus with hyperglycemia (principal); E55.9 Vitamin D deficiency, unspecified
CPT/HCPCS: 36415; 80053; 80061; 82043; 82306; 82570; 84439; 84443